=== PATIENT | male | born 1990 | race African-American/Black ===

== ENCOUNTER 2018-04-03 18:01 | Emergency (ER) | payer OTHER ==
[~2018-04-03] VITALS: Ht 190.5 cm; Wt 75.0 kg
[2018-04-03 21:13] LABS: APPEARANCE,URINE CLEAR (CLEAR); BILIRUBIN,URINE NEGATIVE (NEGATIVE); GLUCOSE, URINE (UA) NEGATIVE (NEGATIVE); KETONES,URINE TRACE mg/dL (NEGATIVE); LEUKOCYTE ESTERASE ,URINE NEGATIVE (NEGATIVE); NITRATE,URINE NEGATIVE (NEGATIVE); OCCULT BLOOD,URINE NEGATIVE (NEGATIVE); PH,URINE 5.5 (5.0-8.0)
[2018-04-03 21:15] LABS: PROTEIN,URINE NEGATIVE (NEGATIVE)
[2018-04-03 21:17] LABS: BACTERIA,URINE None Seen /HPF (None Seen); RBC,URINE None Seen /HPF (0-2); WBC,URINE None Seen /HPF (0-5)
[2018-04-03 22:00] VITALS: BP 115/80
== END 2018-04-03 22:07 | disposition home or self-care (01) ==
LOC: EMS 18:03
DX: I86.1 Scrotal varices (principal); J45.909 Unspecified asthma, uncomplicated; F17.200 Nicotine dependence, unspecified, uncomplicated; F12.90 Cannabis use, unspecified, uncomplicated
CPT/HCPCS: 76870